=== PATIENT | female | born 1975 | race Caucasian/White ===

== ENCOUNTER 2017-08-24 16:28 | Emergency (ER) | payer BC ==
[2017-08-24 17:10] LABS: Hematocrit 38 % (35-47); Hemoglobin 13.5 g/dl (12.0-16.0); Mean Corpuscular HGB Conc 35 g/dl (31-36); Mean Corpuscular Hemoglobin 32 pg (27-31); Mean Corpuscular Volume 90 fL (80-97); Mean Platelet Volume 7 um3 (7.4-10.4); Red Blood Count 4.25 10^6/ul (4.0-5.4); Red Cell Distribution Width 13 % (10.5-15); White Blood Count 5.9 10^3/ul (3.5-10.8)
--- NOTE | 2017-08-24 17:25 | RAD ---
INDICATION: Chest pain COMPARISON: None TECHNIQUE: PA and lateral dual-energy views were obtained. FINDINGS: Bones/Soft Tissues: There are no acute bony findings. Cardiomediastinal: The cardiomediastinal silhouette is normal. Lungs: There are no infiltrates. Pleura: There are no pleural effusions. Other: None IMPRESSION: NEGATIVE EXAMINATION.
[2017-08-24 17:26] LABS: ALT 9 U/L (7-52); AST 12 U/L (13-39); Albumin 4.2 g/dL (3.2-5.2); Alkaline Phosphatase 45 U/L (34-104); Anion Gap 5 mmol/L (2-11); BUN/Creatinine Ratio 16.7 (8-20); Blood Urea Nitrogen 14 mg/dL (6-24); CO2 Carbon Dioxide 26 mmol/L (22-32); Chloride 108 mmol/L (101-111); Creatine Kinase 38 U/L (10-223); EGFR African American 96.1 (>60); EGFR Non-African American 74.7 (>60); Globulin 2.8 g/dL (2-4); Glucose 102 mg/dL (70-100); Sodium 139 mmol/L (133-145)
[2017-08-24 17:51] LABS: T4 6.36 mcg/mL (6.09-12.23)
[2017-08-24 17:55] LABS: TSH (Thyroid Stimulating Horm) 1.62 mcIU/mL (0.34-5.60)
[2017-08-24 20:41] VITALS: BP 124/73
--- NOTE | 2017-08-25 16:04 | ED ---
Damari Mathis Edward, scribed for Geovanni Bahena MD on 08/24/17 at 1642 . HPI Chest Pain - HPI Summary HPI Summary: 41 y/o female presents to the ED c/o CP starting 5 days ago. The pain started at the R side of the neck that radiated down into the chest. It was described as a tightness. The pt had CP earlier today. Currently the pt denies CP, SOB, and N/V/D. The pt's BP, taken today by herself was 166/116. Pt went to her PCP. Associated sx: intermittent dizziness earlier today. PMHx lymphedema. - History of Current Complaint Chief Complaint: EDChestPainROMI Time Seen by Provider: 08/24/17 16:41 Hx Obtained From: Patient Hx Last Menstrual Period: 1 WEEK AGO Onset/Duration: Started Days Ago, Still Present Pain Intensity: 0 Chest Pain Location: Mid Sternal Chest Pain Radiates: Yes Chest Pain Radiates To:: Neck Character: Tightness Aggravating Factor(s): Nothing Alleviating Factor(s): Nothing Associated Signs and Symptoms: Positive: Chest Pain, Dizziness. Negative: Shortness of Breath, Nausea, Vomiting, Other: - negative: diarrhea - Allergy/Home Medications Allergies/Adverse Reactions: Allergies Allergy/AdvReac Type Severity Reaction Status Date / Time Cefadroxil [From Duricef] Allergy Severe N/V Verified 04/13/14 18:10 PMH/Surg Hx/FS Hx/Imm Hx Previously Healthy: No Endocrine/Hematology History: Denies: Hx Diabetes, Hx Thyroid Disease Cardiovascular History: Denies: Hx Hypertension Respiratory History: Denies: Hx Asthma, Hx Chronic Obstructive Pulmonary Disease (COPD) GI History: Denies: Hx Ulcer - Cancer History Hx Chemotherapy: No Hx Radiation Therapy: No Infectious Disease History: No Infectious Disease History: Denies: Hx Clostridium Difficile, Hx Hepatitis, Hx Human Immunodeficiency Virus (HIV), Hx of Known/Suspected MRSA, Hx Shingles, Hx Tuberculosis, Traveled Outside the [place] in Last 30 Days - Family History Known Family History: Positive: None - Social History Alcohol Use: Occasionally Hx Substance Use: No Substance Use Type: Reports: None Hx Tobacco Use: Yes Smoking Status (MU): Heavy Every Day Tobacco Smoker Type: Cigarettes Amount Used/How Often: 1 PPD Review of Systems Constitutional: Negative Eyes: Negative ENT: Negative Positive: Chest Pain Respiratory: Negative Gastrointestinal: Negative Genitourinary: Negative Musculoskeletal: Negative Skin: Negative Neurological: Other - dizziness Psychological: Normal All Other Systems Reviewed And Are Negative: Yes Physical Exam - Summary Physical Exam Summary: VITAL SIGNS: Reviewed. GENERAL: ~Patient is a well-developed and nourished female who is lying comfortable in the stretcher. ~Patient is not in any acute respiratory distress. HEAD AND FACE: No signs of trauma. ~No ecchymosis, hematomas or skull depressions. No sinus tenderness. EYES: PERRLA, EOMI x 2, No injected conjunctiva, no nystagmus. EARS: Hearing grossly intact. Ear canals and tympanic membranes are within normal limits. MOUTH: Oropharynx within normal limits. NECK: Supple, trachea is midline, no adenopathy, no JVD, no carotid bruit, no c- spine tenderness, neck with full ROM. CHEST: Symmetric, no tenderness at palpation LUNGS: Clear to auscultation bilaterally. No wheezing or crackles. CVS: Regular rate and rhythm, S1 and S2 present, no murmurs or gallops appreciated. ABDOMEN: Soft, non-tender. No signs of distention. No rebound no guarding, and no masses palpated. Bowel sounds are normal. EXTREMITIES: FROM in all major joints, no edema, no cyanosis or clubbing. NEURO: Alert and oriented x 3. No acute neurological deficits. Speech is normal and follows commands. SKIN: Dry and warm Triage Information Reviewed: Yes Vital Signs On Initial Exam: Initial Vitals Temp Pulse Resp BP Pulse Ox 97.1 F 80 16 156/100 99 08/24/17 16:33 08/24/17 16:33 08/24/17 16:33 08/24/17 16:33 08/24/17 16:33 Vital Signs Reviewed: Yes Diagnostics - Vital Signs Vital Signs Temp Pulse Resp BP Pulse Ox 08/24/17 16:33 97.1 F 80 16 156/100 99 - Laboratory Result Diagrams: 08/24/17 16:51 08/24/17 16:51 Lab Statement: Any lab studies that have been ordered have been reviewed, and results considered in the medical decision making process. - Radiology CXR Xray Interpretation: No Acute Changes - NEGATIVE EXAM Radiology Interpretation Completed By: Radiologist - ED PHYSICIAN REVIEWS AND AGREES - EKG 1 EKG Interpretation: 16:59 - SR @ [address] ELEVATIONS Chest Pain Course/Dx - Course Assessment/Plan: 41 y/o female presents to the ED c/o CP starting 5 days ago. The pain started at the R side of the neck that radiated down into the chest. It was described as a tightness. The pt had CP earlier today. Currently the pt denies CP, SOB, and N/V/D. The pt's BP, taken today by herself was 166/116. Pt went to her PCP. Associated sx: intermittent dizziness earlier today. PMHx lymphedema. EKG @ 16:59 - SR @ [address] ELEVATIONS. CXR NEGATIVE. Test without significant abnormalities. Trop 0.00. EKG shows no ST elevations. PT is asymptomatic in ED. I will wait on a second troponin; if negative the pt can be d/c with f/u with pcp. At this point, a 2nd trop will be done at 20:30. Pt will be sign out to Dr. Rehman to follow 2nd troponin. - Diagnoses Provider Diagnoses: Chest pain Discharge - Discharge Plan Condition: Stable Disposition: OTHER Discharge Disposition Comment: PT SIGNED OUT TO DR REHMAN PENDING 2nd TROP Referrals: Ana Julien MD [Primary Care Provider] - The documentation as recorded by the Damari xiong Edward accurately reflects the service I personally performed and the decisions made by , Geovanni Bahena MD.
== END 2017-08-24 20:41 | disposition home or self-care (01) ==
LOC: ED 16:28
DX: R07.9 Chest pain, unspecified (principal); R42 Dizziness and giddiness; F17.210 Nicotine dependence, cigarettes, uncomplicated
CPT/HCPCS: 36415; 71020; 80053; 82550; 82553; 83605; 83880; 84436; 84443; 84484; 84702; 85025; 85730; 93005; 99283

== ENCOUNTER 2018-08-16 10:47 | Emergency (ER) | payer BC ==
--- OUTSIDE RECORDS SUMMARY | 2018-08-16 11:41 | XMS REPORT ---
:1975 External Reference #:[id number] Author Organization [employer] Address [address] [place] [address] [place] [address] Phone [phone] Care Team Providers Name Role Phone Ana Julien MD Primary Care Physician Unavailable Payers Type Date Identification Numbers Payment Provider Subscriber Commercial Policy Number: [id number] [facility] Daniel Morgan PayID: [id number] [address] [place] [address] Problems Date Description Provider Status Onset: 01/10/2016 Disturbance in sleep behavior Maame Campbell MD Active Onset: 01/10/2016 Obesity Maame Campbell MD Active Onset: 02/12/2016 Obstructive sleep apnea syndrome Maame Campbell MD Active Family History Date Family Member(s) Problem(s) Comments General Maternal Aunt d/t Pancreatic Ca General Paternal Aunt Pancreatic Ca Father Hypertension Father due to [place] () Mother Hyperlipidemia Siblings 3 Brother w/HTN ; sister kidney stones; brother healthy Social History Type Date Description Comments Marital Status Lives With Family Occupation Currently Working ETOH Use Occasionally consumes alcohol Recreational Drug Use Denies Drug Use Smoking Patient is a former smoker Smoking Patient is a former smoker quit January 2018 Daily Caffeine Consumes on average 1 cup of regular coffee per day Daily Caffeine Consumes on average 1 soda per day Exercise Type/Frequency Exercises sporadically General Hx [employer] company Allergies, Adverse Reactions, Alerts Date Description Reaction Status Severity Comments 01/10/2016 Duricef active Diarrhea,vomiting Medications Medication Date Status Form Strength Qnty SIG Indications Ordering Provider Pravastatin Sodium 07/27 Active Tablets 40mg 30tab take 1 E78.5 s tablet Thuman, oral daily [employer] before bedtime. Ibuprofen 01/08 Active Tablets 200mg as needed Tylenol Extra Active Tablets 500mg as needed Unknown Strength / Nicorette Active Gum 2mg as needed Unknown / Mandibular 02/11 Hx Device dear , G47.33 Maame Advancement Device /2015 please Shannan, - evaluate 01/14 and fabricate oral appliance for mild sleep apnea Hydrochlorothiazide 01/08 Hx Tablets 12.5mg 1 by mouth every day - 09/06 Vital Signs Date Vital Result Comment 07/27/2018 Weight 209.00 lb with shoes Heart Rate 68 /min BP Systolic Sitting 138 mmHg Lue regular cuff BP Diastolic Sitting 82 mmHg Lue regular cuff Ejection Fraction 50-55 echocardiogram 10/14/17 06/22/2018 Height 62 inches 5'2" Weight 204.00 lb Heart Rate 72 /min BP Systolic 128 mmHg Ra, reg BP Diastolic 94 mmHg Ra, reg BMI (Body Mass Index) 37.3 kg/m2 Ejection Fraction 50%-55% 10/14/17 echo 10/20/2017 Height 62 inches 5'2" Weight 190.75 lb with shoes Heart Rate 72 /min BP Systolic Sitting 128 mmHg LA, reg cuff BP Diastolic Sitting 88 mmHg LA, reg cuff BMI (Body Mass Index) 34.9 kg/m2 Ejection Fraction 50%-55% echo 10/14/17 09/29/2017 Height 62 inches 5'2" Weight 191.00 lb Heart Rate 76 /min BP Systolic Sitting 122 mmHg BP Diastolic Sitting 82 mmHg Respiratory Rate 14 /min O2 % BldC Oximetry 98 % BMI (Body Mass Index) 34.9 kg/m2 09/07/2017 Height 62 inches 5'2" Weight 189.38 lb with shoes Heart Rate 66 /min BP Systolic Sitting 128 mmHg LA reg cuff BP Diastolic Sitting 88 mmHg LA reg cuff BMI (Body Mass Index) 34.6 kg/m2 03/20/2017 Height 62 inches 5'2" Weight 191.00 lb Heart Rate 78 /min BP Systolic Sitting 134 mmHg BP Diastolic Sitting 96 mmHg Respiratory Rate 16 /min O2 % BldC Oximetry 98 % room air BMI (Body Mass Index) 34.9 kg/m2 01/15/2017 Height 62 inches 5'2" Heart Rate 93 /min BP Systolic Sitting 120 mmHg BP Diastolic Sitting 70 mmHg Respiratory Rate 16 /min Pain Level 0 O2 % BldC Oximetry 98 % 07/17/2016 Height 62 inches 5'2" Weight 180.00 lb Heart Rate 78 /min BP Systolic Sitting 132 mmHg BP Diastolic Sitting 70 mmHg Respiratory Rate 16 /min O2 % BldC Oximetry 97 % BMI (Body Mass Index) 32.9 kg/m2 06/03/2016 Height 63 inches 5'3" Weight 183.00 lb per pt Heart Rate 84 /min BP Systolic Sitting 130 mmHg BP Diastolic Sitting 66 mmHg Respiratory Rate 16 /min O2 % BldC Oximetry 98 % BMI (Body Mass Index) 32.4 kg/m2 02/12/2016 Height 63 inches 5'3" Weight 190.00 lb Heart Rate 85 /min BP Systolic Sitting 122 mmHg BP Diastolic Sitting 66 mmHg Respiratory Rate 14 /min O2 % BldC Oximetry 98 % BMI (Body Mass Index) 33.7 kg/m2 01/10/2016 Height 63 inches 5'3" Weight 192.00 lb Heart Rate 75 /min BP Systolic Sitting 126 mmHg BP Diastolic Sitting 74 mmHg O2 % BldC Oximetry 8 % BMI (Body Mass Index) 34.0 kg/m2 Neck Circumference in inches 14 Results Test Date Test Result H/L Range Note Lipid Panel - JFM 07/23/2018 Creatine Kinase(CK) 40 U/L 10-223 1 Comp Metabolic Panel 07/23/2018 Sodium 138 mmol/L 135-145 Chloride 109 mmol/L 101-111 Co2 Carbon Dioxide 22 mmol/L 22-32 Calcium 9.1 mg/dL 8.6-10.3 Albumin 4.0 g/dL 3.2-5.2 Total Bilirubin 0.50 mg/dL 0.2-1.0 Glucose 85 mg/dL 70-100 Blood Urea Nitrogen 13 mg/dL 6-24 Creatinine 0.74 mg/dL 0.51-0.95 BUN/Creatinine Ratio 17.6 8-20 Total Protein 6.7 g/dL 6.4-8.9 Globulin 2.7 g/dL 2-4 Albumin/Globulin Ratio 1.5 1-3 Alkaline Phosphatase 51 U/L 34-104 Alt 11 U/L 7-52 Egfr Non- 86.1 >60 Egfr 104.1 >60 2 Potassium TNP mmol/L 3.5-5.0 3 Anion Gap 7 mmol/L 2-11 Ast TNP U/L 13-39 4 Lipid Profile (Trig/Chol/HDL) 07/23/2018 Triglycerides 71 mg/dL 5 Cholesterol 237 mg/dL 6 HDL Cholesterol 54.7 mg/dL 7 LDL Cholesterol 168 mg/dL 8 1 SHORT DRAW!! fasting before ov with INSTRUCTIONAL PARAPROFESSIONAL 2 Because ethnic data is not always readily available, this report includes an eGFR for both -Americans and non- Americans. The National Kidney Disease Education Program (NKDEP) does not endorse the use of the MDRD equation for patients that are not between the ages of 18 and 70, are , have extremes of body size, muscle mass, or nutritional status, or are non- or non-. According to the National Kidney Foundation, irrespective of diagnosis, the stage of the disease is based on the level of kidney function: Stage Description GFR(mL/min/1.73 m(2)) 1 Kidney damage with normal or decreased GFR 90 2 Kidney damage with mild decrease in GFR 60-89 3 Moderate decrease in GFR 30-59 4 Severe decrease in GFR 15-29 5 Kidney failure <15 (or dialysis) 3 Specimen Hemolyzed. Result may not be valid. Unable to report test result due to hemolysis. 4 Unable to report test result due to hemolysis. 5 Desirable: <150 Borderline High: 150-199 High: 200-499 Very High: >500 6 Desirable: <200 Borderline High: 200-239 High: >239 7 Low: <40 Desirable: 40-60 High: >60 8 Desirable: <100 Near Optimal: 100-129 Borderline High: 130-159 High: 160-189 Very High: >189 Procedures Date CPT Code Description Status 06/22/2018 38081 EKG Tracing & Interpretation Completed 10/14/2017 66206 ECHO Transthoracic, Real-Time 2D With Doppler And Color Completed Flow 10/14/2017 55834 ECHO Transthoracic, Real-Time 2D With Doppler And Color Completed Flow 10/13/2017 03740 ECHO Stress Test Incl Perf Contiuous ekg Monitoring Completed W/Phys Superv 09/07/2017 44771 EKG Tracing & Interpretation Completed 01/30/2016 27321 Sleep Study Unattended,HRT Rate,Oxygen Sat,Resp Completed Effort/Airflow Encounters Type Date Location Provider CPT E/M Dx Office Visit 06/22/2018 4:00p [facility] Aldo Ríos, [address] E66.9 M.D. G47.33 Z87.891 Z82.49 Z82.41 R94.31 Z68.37 Office Visit 10/20/2017 2:00p [facility], [address] R07.9 M.D. G47.33 E66.9 F17.210 Office Visit 09/29/2017 10:30a [facility] [place] [address] G47.33 [facility] F17.210 Office Visit 09/07/2017 2:00p [facility], [address] G47.33 M.D. R07.9 E66.9 F17.210 R94.31 Office Visit 03/20/2017 10:00a [facility] [place] [address] G47.33 [facility] Office Visit 01/15/2017 3:30p [facility] [place] [address] G47.33 [facility] Office Visit 07/17/2016 2:30p [facility] [place] [address] G47.33 [facility] E66.09 Office Visit 06/03/2016 3:15p [facility] [place] [address] G47.33 [facility] E66.09 Office Visit 02/12/2016 3:15p [place] [address] G47.33 [facility] E66.09 Office Visit 01/10/2016 2:00p [facility] [place] [address] G47.9 [facility] E66.09 Plan of Care 07/27/2018 - Nathaly Diaz NPE78.5 Hyperlipidemia, unspecifiedNew Medication: Pravastatin Sodium 40 mgFollow up:in 12 months with Z87.891 Personal history of nicotine [id number] Family history of sudden cardiac
[2018-08-16 11:50] VITALS: BP 146/83
[2018-08-16] MEDS ORDERED: Fluorescein Sodium TOPICAL* 1 MG TEST STRIP OPHTHALMIC ONE (11:55)
[2018-08-16] MEDS ORDERED: Tetracaine 0.5% OPTH.SOL 4 ML* 1 DROP BTL LEFT EYE ONE (11:55)
--- NOTE | 2018-08-16 12:01 | UC ---
Ear Complaint HPI - HPI Summary HPI Summary: 42-year-old woman here clinic today with a chief complaint of bilateral ear pain. Pain started about a week ago right worse than the left. She feels like there is fluid In her years. She has minimal rhinorrhea no sore throat no fevers or chills. She also has some discomfort in the left eye is been going on for one week. She feels like something is stuck underneath the upper eyelid on the lateral aspect. No known trauma no known foreign body. There is minimal eye discharge. She does not wear contacts she is not wear glasses - History of Current Complaint Chief Complaint: UCEar Stated Complaint: EAR PAIN, EYE PAIN Time Seen by Provider: 08/16/18 11:47 Hx Last Menstrual Period: 1 WEEK AGO Pain Intensity: 3 - Allergies/Home Medications Allergies/Adverse Reactions: Allergies Allergy/AdvReac Type Severity Reaction Status Date / Time cefadroxil [From Duricef] Allergy Rash Verified 08/16/18 11:51 Sulfa (Sulfonamide Allergy Rash Verified 08/16/18 11:51 Antibiotics) PMH/Surg Hx/FS Hx/Imm Hx Respiratory History: Asthma - Surgical History Surgical History: None - Family History Known Family History: Positive: None - Social History Alcohol Use: Occasionally Substance Use Type: None Smoking Status (MU): Heavy Every Day Tobacco Smoker Type: Cigarettes Amount Used/How Often: 1 PPD Review of Systems All Other Systems Reviewed And Are Negative: Yes Constitutional: Positive: Negative Skin: Positive: Negative Eyes: Positive: Drainage ENT: Positive: Ear Ache Respiratory: Positive: Negative Cardiovascular: Positive: Negative Gastrointestinal: Positive: Negative Motor: Positive: Negative Neurovascular: Positive: Negative Musculoskeletal: Positive: Negative Neurological: Positive: Negative Psychological: Positive: Negative Is Patient Immunocompromised?: No Physical Exam Triage Information Reviewed: Yes Appearance: Well-Appearing, No Pain Distress, Well-Nourished Vital Signs: Initial Vital Signs Temp 98.8 F 08/16/18 11:47 Pulse 66 08/16/18 11:47 Resp 16 08/16/18 11:47 BP 146/83 08/16/18 11:47 Pulse Ox 99 08/16/18 11:47 Vital Signs Reviewed: Yes Eyes: Positive: Other: - Both eyes appear normal with PERRLA/EOMI. there is no scleral injection. I don't see an obvious swelling of the eyelids. ENT: Positive: Pharynx normal, Other - Bilateral cerumen impaction Neck exam: Normal Neck: Positive: Supple Respiratory: Positive: Lungs clear, Normal breath sounds, No respiratory distress Cardiovascular: Positive: RRR Musculoskeletal Exam: Normal Musculoskeletal: Positive: Strength Intact, ROM Intact Neurological Exam: Normal Neurological: Positive: Alert, Muscle Tone Normal Psychological Exam: Normal Psychological: Positive: Age Appropriate Behavior Skin Exam: Normal Ear Complaint Course/Dx - Course Course Of Treatment: After flushing of both ears there is less cerumen but is not completely clear. We'll treat with both antibiotic eardrops and by mouth antibiotics for the ears. On for seen stain of the left eye there on the lower lid is ingrown eyelash rubbing on the eye. No corneal abrasion seen. I removed the eyelash. We'll treat with antibiotic drops for the eye. Follow up with ophthalmology if not completely improved. - Differential Dx/Diagnosis Provider Diagnosis: Impacted cerumen of both ears, Acute pain of both ears, Left eye pain Discharge - Sign-Out/Discharge Documenting (check all that apply): Patient Departure All imaging exams completed and their final reports reviewed: No Studies - Discharge Plan Condition: Stable Disposition: HOME Prescriptions: Amoxicillin/Clavulanate TAB* [Augmentin TAB 875*] 875 mg PO BID #20 tab Neomyc/Polym/HC 1% OTIC SUSP* [Cortisporin Otic Susp 1%*] 4 drop BOTH EARS QID # 1 btl Tobramycin 0.3% OPHTH.CODY* 1 drop LEFT EYE Q4H #1 btl Patient Education Materials: Earache (ED), Cerumen Impaction (ED), Eye Pain (ED ) Referrals: Ana Julien MD [Primary Care Provider] - Prakash Elizabeth MD [Medical Doctor] - Additional Instructions: FOLLOW UP WITH YOUR PRIMARY CARE DOCTOR FOR YOUR EARS AND OPHTHALMOLOGY FOR YOUR LEFT EYE IF NOT COMPLETELY IMPROVED. GET RECHECKED FOR ANY WORSENING OF YOUR CONDITION OR QUESTIONS OR CONCERNS. - Billing Disposition and Condition Condition: STABLE Disposition: Home
== END 2018-08-16 13:10 | disposition home or self-care (01) ==
LOC: UCEAST 10:47
DX: H61.23 Impacted cerumen, bilateral (principal); H92.03 Otalgia, bilateral; H57.12 Ocular pain, left eye; Z88.1 Allergy status to other antibiotic agents; F17.210 Nicotine dependence, cigarettes, uncomplicated
CPT/HCPCS: 99213; A9270-GY; G0463